=== PATIENT | male | born 1985 | race Caucasian/White ===

== ENCOUNTER 2020-12-20 15:10 | Outpatient (RCR) | payer OTHER, SELFPAY ==
[2018-10-18 11:03] VITALS: BMI 26.2
== END 2021-02-08 23:59 ==
LOC: IMMUN 15:10
PROVIDERS: Visit Provider Family Medicine
DX: Z23 Encounter for immunization (principal)
CPT/HCPCS: 0001A; 91300

== ENCOUNTER 2024-03-10 14:54 | Outpatient (CLI) | payer OTHER, SELFPAY | END 2024-03-10 23:59 | disposition home or self-care (01) | PROVIDERS: Referring Provider Otolaryngology Otolaryngology/Facial Plastic Surgery; Visit Provider Otolaryngology Otolaryngology/Facial Plastic Surgery | DX: T78.40XA Allergy, unspecified, initial encounter (principal) | CPT/HCPCS: 36415 ==